=== PATIENT | male | born 1925 | race Caucasian/White ===

== ENCOUNTER 2016-07-04 09:23 | Outpatient (CLI) | payer MEDICARE ==
[~2016-07-04] VITALS: Ht 180.3 cm; Wt 80.4 kg
[~2016-07-04 09:23] MED LIST: AZIT-21 PO; DOXA2TAB2 PO; LEVO500T2 PO; METH4TAB PO; NAPR500T3 PO; TRM50T PO
--- OUTSIDE RECORDS SUMMARY | 2016-07-04 09:27 | XMS REPORT ---
Author Author SUZANNE NUÑEZ Organization [employer] Address Unknown Phone Unavailable Care Team Providers Care Linseed Oil Order Filler Name Role Phone SUZANNE NUÑEZ CP Unavailable Allergies No Known Allergies Problems Problem Type Condition ICD-9 Code Onset Dates Condition Status Assessment Dental examination V72.2 Active Medications No Known Medications Procedures Procedure Coding System Code Date Billing Notes on claim CPT-4 [id number] October 09, 2014 Results No Known Results Summary Purpose [employer] Submission
[2016-07-04 09:32] VITALS: BP 176/100
[2016-07-04] MEDS ORDERED: DOXA4TAB2 PO (09:34)
[2016-07-04 10:28] LABS: BASOPHILS % (AUTO) 1 % (0-10); EOSINOPHILS # (AUTO) 0.2 10^3/uL (0.0-0.3); EOSINOPHILS % (AUTO) 5 % (0-10); LYMPHOCYTES # (AUTO) 0.9 X 10^3 (1.0-4.0); LYMPHOCYTES % (AUTO) 19 % (12-44); MEAN CORPUSCULAR HEMOGLOBIN 28 PG (25-34); MEAN CORPUSCULAR HGB CONC 33 G/DL (32-36); MEAN CORPUSCULAR VOLUME 84 FL (80-99); MEAN PLATELET VOLUME 9.6 FL (7.4-10.4); MONOCYTES # (AUTO) 0.7 X 10^3 (0.0-1.0); MONOCYTES % (AUTO) 15 % (0-12); NEUTROPHILS # (AUTO) 2.7 X 10^3 (1.8-7.8); NEUTROPHILS % (AUTO) 60 % (42-75); PLATELET COUNT 182 10^3/uL (130-400); RED BLOOD COUNT 4.86 10^6/uL (4.35-5.85); RED CELL DISTRIBUTION WIDTH 14.1 % (10.0-14.5); WHITE BLOOD COUNT 4.6 10^3/uL (4.3-11.0)
[2016-07-04 10:38] LABS: ANION GAP 9 MMOL/L (5-14); BLOOD UREA NITROGEN 15 MG/DL (7-18); BUN/CREATININE RATIO 14; CALCIUM 9.1 MG/DL (8.5-10.1); CARBON DIOXIDE 26 MMOL/L (21-32); CHLORIDE 105 MMOL/L (98-107); CREATININE SERUM 1.05 MG/DL (0.60-1.30); GFR ESTIMATED > 60; GLUCOSE 86 MG/DL (70-105); POTASSIUM 4.1 MMOL/L (3.6-5.0); SODIUM 140 MMOL/L (135-145)
== END 2016-07-04 10:15 | disposition home or self-care (01) ==
LOC: PREOP 09:23
PROVIDERS: ATTEND Surgery
DX: Z01.818 Encounter for other preprocedural examination (principal); Z01.812 Encounter for preprocedural laboratory examination; Z11.2 Encounter for screening for other bacterial diseases; K40.91 Unilateral inguinal hernia, without obstruction or gangrene, recurrent
CPT/HCPCS: 36415; 80048; 85025; 87081; 93005

== ENCOUNTER 2016-07-07 10:18 | Day surgery (SDC) | payer MEDICARE ==
[~2016-07-07] VITALS: Ht 180.3 cm; Wt 80.4 kg
[~2016-07-07 10:18] MED LIST changes: +DOXA4TAB2 PO
[2016-07-07] MEDS ORDERED: NS (IVPB) 50 ML ONE (10:33)
[2016-07-07] MEDS ORDERED: ceFAZolin 1,000 MG (ANCEF) VIAL ONE (10:33)
[2016-07-07] MEDS ORDERED: ceFAZolin 1 GM/NS 50 ML IVPB IV ONE ×2 (10:45)
[2016-07-07] MEDS ORDERED: LACTATED RINGERS 1,000 ML IV ONE ×2 (11:48→13:11)
[2016-07-07] MEDS ORDERED: SEVOFLURANE (ULTANE) 15 ML INHAL SOLN ONE ×2 (11:48→14:08)
[2016-07-07] MEDS ORDERED: MIDAZOLAM 2 MG/2 ML (VERSED) VIAL ONE (11:48)
[2016-07-07] MEDS ORDERED: LIDOCAINE PF 2% 10 ML (XYLOCAINE) AMP ONE (11:48)
[2016-07-07] MEDS ORDERED: proPOfol 200 MG/20 ML (DIPRIVAN) VIAL IV ONE (11:48)
[2016-07-07] MEDS ORDERED: fentaNYL INJECTION 100 MCG/2 ML AMP ONE (11:48)
[2016-07-07] MEDS ORDERED: LACTATED RINGERS 1,000 ML IV PRN (11:51)
[2016-07-07] MEDS ORDERED: ROCURONIUM 50 MG/5 ML (ZEMURON) VIAL IV ONE (11:52)
--- NOTE | 2016-07-07 12:22 | Progress Note-Pre Operative ---
Pre-Operative Progress Note H&P Reviewed The H&P was reviewed, patient examined and no changes noted. Date H&P Reviewed: Jul 07, 2016 Time H&P Reviewed: 12:22 Pre-Operative Diagnosis: recurrent left inguinal hernia GUANAKO DEAN MD Jul 07, 2016 12:22 pm
[2016-07-07] MEDS ORDERED: BUP/EPI 0.25% 1:200,000 (MARCAINE) 30 ML VIAL ONE (12:55)
[2016-07-07] MEDS ORDERED: DEXAMETHASONE PF 10 MG/ML (DECADRON) VIAL ONE (13:07)
[2016-07-07] MEDS ORDERED: NEOSTIGMINE (BLOXIVERZ ) 1 MG/1ML 10 ML VIAL ONE (13:56)
[2016-07-07] MEDS ORDERED: GLYCOPYRROLATE 0.2 MG/ML (ROBINUL) 2 ML VIAL ONE (13:56)
--- NOTE | 2016-07-07 14:11 | Progress Note-Post Operative ---
Post-Operative Progess Note Pre-Operative Diagnosis recurrent left inguinal hernia Post-Operative Diagnosis same Post-Op Procedure Note Date of Procedure: Jul 07, 2016 Name of Procedure: robotic assisted repair with mesh Anesthesia Type Gen. Estimated blood loss (mL): GUANAKO Ngo MD Jul 07, 2016 2:11 pm
[2016-07-07] MEDS ORDERED: HYDR-3812 PO (14:12)
--- NOTE | 2016-07-07 14:13 | Discharge Inst-Simple/Standard ---
Discharge Inst-Standard Discharge Medications New, Converted or Re-Newed RX: RX on Chart Patient Instructions/Follow Up Plan of Care/Instructions/FU: dressings off in 48 hours. Incentive spirometry. Follow-up in 4 weeks. Activity as Tolerated: No Goal: no lifting over 10 pounds Discharge Diet: No Restrictions GUANAKO DEAN MD Jul 07, 2016 2:13 pm
[2016-07-07] MEDS ORDERED: ONDANSETRON 4 MG/2 ML (SDV) Z0FRAN IV PRN (14:30)
[2016-07-07] MEDS ORDERED: morphine INJ 10 MG/ML 1ML (SYR OR VIAL) IV PRN (14:30)
[2016-07-07] MEDS ORDERED: fentaNYL INJECTION 250 MCG/5 ML AMP IV PRN (14:30)
[2016-07-07 15:20] VITALS: BP 156/85
[2016-07-07 15:50] VITALS: BP 157/96
[2016-07-07 16:55] VITALS: BP 157/96
[2016-07-07 16:58] VITALS: BP 160/90
--- NOTE | 2016-07-08 13:43 | OPERATIVE REPORT ---
PROCEDURE PHYSICIAN: GUANAKO DEAN DATE OF PROCEDURE: 07/07/2016 PREOPERATIVE DIAGNOSIS: Recurrent left inguinal hernia. POSTOPERATIVE DIAGNOSIS: Recurrent left inguinal hernia. OPERATION: Robotic assisted repair of recurrent left inguinal hernia with mesh. SURGEON: Virgilio ANESTHESIA: General BLOOD LOSS: Minimal. FLUIDS: 1400 mL crystalloids. TYPE OF WOUND: Type I (clean wound) INDICATION FOR THE PROCEDURE: This gentleman presented with a recurrent inguinal hernia. He had undergone conventional open mesh repair about 4 years ago. He was offered minimally invasive repair with robotic assistance and mesh reinforcement using pre-peritoneal approach. informed consent was obtained after reviewing the operative details and complications of hematoma, infection of the mesh and further recurrence of the hernia. DESCRIPTION OF PROCEDURE: He was placed supine on the operating table and general anesthesia induced using an endotracheal tube. A gram of Ancef was administered intravenously as prophylaxis against wound infection. Sequential compression devices were placed around his legs, to minimize to risk of venous thrombosis. A Hernandez catheter was placed to decompress the bladder during surgery. It was removed at the end of the operation. Abdomen was prepared and draped in the usual sterile manner. A supraumbilical incision was made and pneumoperitoneum established using a Veress needle. Intra-abdominal pressure was maintained at 15 mmHg. A 12 mm trocar was placed and anatomy visualized using a high definition, 3 dimensional laparoscope associated with da Casandra system. A large left inguinal hernia was identified. Sigmoid colon was found trapped within the hernia. Under direct view, I placed an 8 mm cannula over each side of the abdomen. The patient was then turned into steep Trendelenburg position to displace loops of bowel out of the pelvis. The robotic system was then docked in place. Sigmoid colon was using sharp dissection without any iatrogenic injury. A large indirect hernia sac was identified and after incising the peritoneum from the lateral end toward the midline. When the sac was completely , Ángel's ligament was identified easily. A large polypropylene mesh measuring 10 x 16 cm was used for reinforcement. It was secured to Ángel's ligament and the lateral abdominal musculature using 2-0 Vicryl sutures with robotic assistance. Peritoneum was then reconstituted using a 2-0 V-Loc suture with robotic assistance. Hemostasis was satisfactory. Once the trocars were removed, the fascia over the supraumbilical incision was closed using number 1 Vicryl. The skin was closed using 4-0 Vicryl, in a subcuticular fashion. 0.25% Marcaine with epinephrine was infiltrated along the incisions, both preemptively and at the conclusion of the operation. He tolerated the procedure well, was extubated in the operating room and taken to the recovery room in a stable condition. Cabazon, sponges, and instruments were correct at the end of the operation. Job ID: [id number] Dictated Date: 07/07/2016 14:10:49 Community Engagement Leader Date: 07/08/2016 13:32:24 / barry GAN
== END 2016-07-07 16:55 | disposition home or self-care (01) ==
LOC: SDC 10:18
PROVIDERS: ATTEND Surgery
DX: K40.91 Unilateral inguinal hernia, without obstruction or gangrene, recurrent (principal)